=== PATIENT | male | born 1965 ===

== ENCOUNTER 2022-07-10 01:58 | Day surgery (SDC) | payer BC, SELFPAY ==
[2022-06-30 10:16] VITALS: BMI 32.3
--- NOTE | 2022-07-07 13:59 | PM.HPGS ---
History of Present Illness History of Present Illness Consent: Risks, benefits, and alternatives have been discussed and questions answered. Patient agrees to proceed with procedure. Chief complaint: hx of colon polyps Narrative: Carlito Chamberlain is a 57 year old male Referred for colon cancer screening. he has history of polyps. Review of Systems Review of Systems: All systems reviewed & are unremarkable except as noted in HPI and below PMFSH Social History Social History Smoking packs per day: 2 Smoking cigarettes per day: 40.0 Years smoked: 20 Smoking pack-years: 40.00 Smoking status: Former smoker Tobacco type: cigarettes Alcohol intake: current Drinks per week: 35 Alcohol use details: BEERS Substance use: never Substance use type: does not use Living arrangements: with family Spiritual care concerns: No Meds Home Medications and Allergies Home Medications Medication Instructions Recorded Confirmed Type albuterol sulfate 90 mcg/actuation 1 inh inhalation PRN PRN Shortness 06/30/22 06/30/22 History aerosol inhaler Of Breath amlodipine 5 mg tablet 5 mg PO DAILY 06/30/22 06/30/22 History aspirin,buffered (calcium 325 mg PO DAILY 06/30/22 06/30/22 History carbonate-magnesium) 325 mg tablet (Bufferin) atorvastatin 10 mg tablet 10 mg PO DAILY 06/30/22 06/30/22 History cetirizine 10 mg capsule (Zyrtec) 10 mg PO DAILY 06/30/22 06/30/22 History fluticasone propionate 50 2 spray intranasal QPM 06/30/22 06/30/22 History mcg/actuation nasal spray,suspension montelukast 10 mg tablet 10 mg PO DAILY 06/30/22 06/30/22 History olmesartan 20 mg tablet 20 mg PO DAILY 06/30/22 06/30/22 History omega-3 fatty acids-vitamin E 3 cap PO DAILY 06/30/22 06/30/22 History 1,000 mg capsule ruxolitinib 1.5 % topical cream 1 applic topical BID 06/30/22 06/30/22 History (Opzelura) Allergies Allergy/AdvReac Type Severity Reaction Status Date / Time Penicillins Allergy Intermediate Hives Verified 07/10/22 06:17 Exam Const: General: alert Orientation/consciousness: patient oriented x3 Resp: Auscultation: clear to auscultation bilaterally Cardio: Rhythm: regular rhythm GI: GI Palp: Yes Soft to palpation and No Tenderness to palpation present (GI) Neuro: General: patient oriented x3 Assessment and Plan Assessment and plan (1) Colon cancer screening: Code(s): Z12.11 - Encounter for screening for malignant neoplasm of colon Status: Acute Assessment and Plan: Colonoscopy with possible biopsy or polypectomy or cautery or injection of substances.
[2022-07-10 06:19] VITALS: BP 164/84; PULSE 88; RESP 20; TEMP 36.2; O2SAT 96; BMI 31.6
[2022-07-10] MEDS: LACTATED RINGERS 1,000 ML 150 ML IV CONT (06:31)
--- NOTE | 2022-07-10 06:51 | WPDANESEPPF ---
Anes - Initial Pre Proc Eval Procedure: Operation Date: 07/10/22 07:30 Proposed Procedures p Screening Colonoscopy - Aguilar Gutierrez MD Date/Time: 07/10/22 06:51 Surgeon: Aguilar Gutierrez MD Pre Op Diagnosis: hx of colon polyps Patient Data Age: 57 Gender: M Height: 1.8 m Weight: 102.9 kg Last Vital Signs Temp 36.2 C L 07/10/22 06:19 Pulse 88 07/10/22 06:19 Resp 20 07/10/22 06:19 BP 164/84 H 07/10/22 06:19 Pulse Ox 96 07/10/22 06:19 O2 Del Method Room Air 07/10/22 06:19 Allergies Allergy/AdvReac Type Severity Reaction Status Date / Time Penicillins Allergy Intermediate Hives Verified 07/10/22 06:17 Home Medications Medication Instructions Recorded Confirmed Type albuterol sulfate 90 mcg/actuation 1 inh inhalation PRN PRN Shortness 06/30/22 06/30/22 History aerosol inhaler Of Breath amlodipine 5 mg tablet 5 mg PO DAILY 06/30/22 06/30/22 History aspirin,buffered (calcium 325 mg PO DAILY 06/30/22 06/30/22 History carbonate-magnesium) 325 mg tablet (Bufferin) atorvastatin 10 mg tablet 10 mg PO DAILY 06/30/22 06/30/22 History cetirizine 10 mg capsule (Zyrtec) 10 mg PO DAILY 06/30/22 06/30/22 History fluticasone propionate 50 2 spray intranasal QPM 06/30/22 06/30/22 History mcg/actuation nasal spray,suspension montelukast 10 mg tablet 10 mg PO DAILY 06/30/22 06/30/22 History olmesartan 20 mg tablet 20 mg PO DAILY 06/30/22 06/30/22 History omega-3 fatty acids-vitamin E 3 cap PO DAILY 06/30/22 06/30/22 History 1,000 mg capsule ruxolitinib 1.5 % topical cream 1 applic topical BID 06/30/22 06/30/22 History (Opzelura) Patient hx anesthesia problems: none Family hx anesthesia problems: none Results Review: All pre-operative results and documents have been reviewed as part of the pre-operative evaluation. [facility] Past Medical History Medical History (Updated 07/10/22 @ 06:52 by Joe Gonzalez MD) HTN (hypertension) Hyperlipidemia Obesity PVD (peripheral vascular disease) Snoring Surgical History Surgical History (Updated 07/10/22 @ 06:52 by Joe Gonzalez MD) History of lumbar surgery Social History Social History Smoking packs per day: 2 Smoking cigarettes per day: 40.0 Years smoked: 20 Smoking pack-years: 40.00 Smoking status: Former smoker Tobacco type: cigarettes Alcohol intake: current Drinks per week: 35 Alcohol use details: BEERS Substance use: never Substance use type: does not use Living arrangements: with family Spiritual care concerns: No Anes - Eval Final PreProcedure Day of Procedure 07/10/22 06:51 Patient weight: obese Heart: regular rate and rhythm Lungs: clear to auscultation Airway: Mallampati scale class II and special considerations poor opening Last oral intake: >/= 8 hours ASA classification: III Emergent: no Anesthetic plan: proceed Anesthesia type and monitoring: general GIVS and standard monitoring Results Review: All pre-operative results and documents have been reviewed as part of the pre-operative evaluation. Informed Consent: The patient's anesthetic plan and its attendant risks and benefits were discussed with the patient/family/POA. Questions were solicited and answers provided to the satisfaction of the patient/family/POA.
[2022-07-10] MEDS: SIMETHICONE ORAL SUSPENSION 20 MG/0.3 ML 30 ML BOTTLE 0.6 ML IRRIGATION (07:39)
[2022-07-10 07:54] VITALS: BP 89/56; PULSE 76; RESP 17; O2SAT 97
[2022-07-10 08:04] VITALS: BP 112/67; PULSE 77; RESP 18; O2SAT 98
[2022-07-10 08:14] VITALS: BP 123/66; PULSE 81; RESP 21; O2SAT 98
== END 2022-07-10 08:20 | disposition home or self-care (01) ==
PROVIDERS: PCP Family Medicine; Visit Provider Internal Medicine Gastroenterology
PROC: 0DJD8ZZ Inspection of Lower Intestinal Tract, Via Natural or Artificial Opening Endoscopic (ICD-10-PCS; CPT 45378; principal; 2022-07-10 07:30)
DX: Z12.11 Encounter for screening for malignant neoplasm of colon (principal); K57.30 Diverticulosis of large intestine without perforation or abscess without bleeding; D12.5 Benign neoplasm of sigmoid colon; I10 Essential (primary) hypertension; E78.5 Hyperlipidemia, unspecified; I49.3 Ventricular premature depolarization; Z79.51 Long term (current) use of inhaled steroids; E66.9 Obesity, unspecified; Z68.31 Body mass index [BMI] 31.0-31.9, adult; Z87.891 Personal history of nicotine dependence
CPT/HCPCS: 45380; 45385; 88305; J2704; J7120

== ENCOUNTER 2022-07-10 23:10 | Observation (INO) | payer BC, SELFPAY ==
[2022-07-10 23:13] VITALS: BP 159/66; PULSE 106; RESP 20; TEMP 36.3; O2SAT 96
[2022-07-10 23:34] VITALS: BP 144/82; PULSE 95; RESP 21; O2SAT 95
[2022-07-10 23:45] VITALS: PULSE 89; RESP 13; O2SAT 95
[2022-07-10 23:46] VITALS: BP 115/71; PULSE 89; RESP 14; O2SAT 95
[2022-07-11] VITALS (27 sets, daily range): BP systolic 108–151; BP diastolic 55–84; PULSE 81–107; RESP 13–23; TEMP 36.1–36.6; O2SAT 94–100; BMI 37.1
--- NOTE | 2022-07-11 00:13 | ED.GIBLEED ---
HPI - GI Bleed General Chief complaint: GI Bleed Stated complaint: colonoscopy today rectal bleed Time Seen by Provider: 07/10/22 23:34 Source: patient Mode of arrival: ambulatory Limitations: no limitations History of Present Illness HPI Narrative: This is a 57 year old male that presents to the ER for GI bleeding. Reports he had a colonoscopy today with Dr. Gutierrez. Reports he had polyps removed. Reports he sat on the toilet tonight and thought he needed to pass gas. Reports he filled the toilet bowl with blood. He has not had any further episodes thus far. Although he does reports he feels like it could happen again at any moment. He is not on any blood thinners Related Data Home Medications Medication Instructions Recorded Confirmed albuterol sulfate 90 mcg/actuation 1 inh inhalation PRN PRN Shortness 06/30/22 06/30/22 aerosol inhaler Of Breath amlodipine 5 mg tablet 5 mg PO DAILY 06/30/22 06/30/22 aspirin,buffered (calcium 325 mg PO DAILY 06/30/22 06/30/22 carbonate-magnesium) 325 mg tablet (Bufferin) atorvastatin 10 mg tablet 10 mg PO DAILY 06/30/22 06/30/22 cetirizine 10 mg capsule (Zyrtec) 10 mg PO DAILY 06/30/22 06/30/22 fluticasone propionate 50 2 spray intranasal QPM 06/30/22 06/30/22 mcg/actuation nasal spray,suspension montelukast 10 mg tablet 10 mg PO DAILY 06/30/22 06/30/22 olmesartan 20 mg tablet 20 mg PO DAILY 06/30/22 06/30/22 omega-3 fatty acids-vitamin E 3 cap PO DAILY 06/30/22 06/30/22 1,000 mg capsule ruxolitinib 1.5 % topical cream 1 applic topical BID 06/30/22 06/30/22 (Opzelura) Allergies Allergy/AdvReac Type Severity Reaction Status Date / Time Penicillins Allergy Intermediate Hives Verified 07/10/22 23:15 Review of Systems Review of Systems: CONSTITUTIONAL: Denies fever GASTROINTESTINAL: Denies abdominal pain, or diarrhea. All systems reviewed & are unremarkable except as noted in HPI and below PMFSH Past Medical History Medical History (Updated 07/11/22 @ 01:25 by Jessie Adams PA-C) HTN (hypertension) Hyperlipidemia Obesity PVD (peripheral vascular disease) Snoring Surgical History Surgical History (Updated 07/10/22 @ 06:52 by Joe Gonzalez MD) History of lumbar surgery Social History Social History Smoking packs per day: 2 Smoking cigarettes per day: 40.0 Years smoked: 20 Smoking pack-years: 40.00 Smoking status: Former smoker Tobacco type: cigarettes Alcohol intake: current Drinks per week: 35 Alcohol use details: BEERS Substance use: never Substance use type: does not use Spiritual care concerns: No Exam Narrative: GENERAL: Well-appearing, well-nourished, and in no acute distress. HEAD: Normocephalic, atraumatic. EYES: EOMI. CHEST: Clear to auscultation. No respiratory distress. No wheezes rales or rhonchi HEART: Regular rate and rhythm. No murmur heard. Normal peripheral pulses. ABDOMEN: Soft, nontender, nondistended, normal active bowel sounds. EXTREMITIES: Normal range of motion. No edema. SKIN: Warm, dry, no rash. NEURO: No focal deficits. Alert and oriented x3. PSYCH: Normal mood and affect RECTAL: Bright red blood noted in the rectum. No active bleeding Course Consultations Consultation #1: Spoke with Dr. Gutierrez about patient and workup who will admit patient Date: 07/11/22 Vital Signs Vital signs: Vital Signs Temperature 97.4 F L 07/10/22 23:13 Pulse Rate 106 H 07/10/22 23:13 Respiratory Rate 20 07/10/22 23:13 Blood Pressure 159/66 H 07/10/22 23:13 Pulse Oximetry 96 07/10/22 23:13 Oxygen Delivery Room Air 07/10/22 23:13 Temperature 97.4 F L 07/10/22 23:13 Pulse Rate 82 07/11/22 00:45 Respiratory Rate 15 07/11/22 00:45 Blood Pressure 116/67 07/11/22 00:45 Pulse Oximetry 94 07/11/22 00:45 Oxygen Delivery Room Air 07/10/22 23:13 MDM - GI Bleed MDM Narrative Medical decision making narrative: Charmaine
[2022-07-11 00:14] LABS: Basophils Absolute Auto 0.1 K/mm3 (0.0-0.1); Basophils Percent Auto 0.7 % (0.2-1.2); Eosinophils Absolute Auto 0.4 K/mm3 (0-0.3); Eosinophils Percent Auto 4.3 % (0-4.4); Hematocrit 39.1 % (42.0-52.0); Hemoglobin 13.4 g/dL (14.0-18.0); Immature Granulocyte Absolute 0.05 K/mm3 (0.00-0.031); Immature Granulocyte Percent A 0.5 % (0-0.5); Lymphocytes Absolute Auto 2.13 K/mm3 (0.9-3.2); Lymphocytes Percent Auto 22.7 % (18.3-44.2); Mean Corpuscular HGB Conc 34.3 g/dl (32-36); Mean Corpuscular Hemoglobin 31.1 pg (26-34); Mean Corpuscular Volume 90.7 fl (80-100); Mean Platelet Volume 9.3 fl (7.4-10.4); Monocytes Percent Auto 10.9 % (2.6-8.5); Neutrophils Absolute Auto 5.7 K/mm3 (1.3-6.7); Neutrophils Percent Auto 60.9 % (45.5-73.1); Platelet Count Result 297 k/mm3 (150-375); Red Blood Count 4.31 M/mm3 (4.6-6.20); White Blood Count 9.4 K/mm3 (4.5-10.0)
[2022-07-11 00:27] LABS: Alanine Aminotransferase 25 U/L (6-50); Albumin Level 4.4 g/dL (3.5-5.1); Alkaline Phosphatase 43 U/L (38-126); Anion Gap 18 mmol/L (8-16); Aspartate Amino Transferase 24 U/L (17-59); Bilirubin,Total 0.5 mg/dL (0.2-1.3); Blood Urea Nitrogen 16 mg/dL (9-20); Calcium 8.9 mg/dL (8.4-10.2); Carbon Dioxide 20 mmol/L (22-30); Chloride 96 mmol/L (98-107); Estimated CRCL calculation 73 ml/min; Estimated Glomerular Filt Rate > 60; Glucose 179 mg/dL (65-110); Potassium 3.2 mmol/L (3.4-5.0); Sodium 134 mmol/L (137-145)
[2022-07-11 00:28] LABS: Partial Thromboplastin Time 29.6 SECONDS (22.3-36.8)
[2022-07-11] MEDS: SODIUM CHLORIDE 0.9% IV 500 ML 999 ML IV CONT (00:49)
[2022-07-11] MEDS: SODIUM CHLORIDE 0.9% IV 1,000 ML 100 ML IV CONT (00:50)
[2022-07-11] MEDS: KCL 20 MEQ/SW 100 ML 100 ML 50 MEQ IVPB (00:50)
[2022-07-11 01:15] LABS: Magnesium 1.7 mg/dL (1.6-2.3)
[2022-07-11 01:54] LABS: SARS-CoV-2 RNA PCR Negative
[2022-07-11 03:33] LABS: Hematocrit 35.9 % (42.0-52.0); Hemoglobin 12.1 g/dL (14.0-18.0)
--- NOTE | 2022-07-11 04:30 | ADMGEN ---
This patient, Carlito Chamberlain, was admitted to Medical Room 243-. Patient/family oriented to hospital policies and general routines including ID bracelet, bed and alarms, visiting hours, pain management, procedures, bathroom and other care routines, personal items, smoking policy, room service/diet, and visiting hours. Information on how to activate the Rapid Response Team has been discussed. Patient/Family are encouraged to report perceived risks to care and to ask questions if they do not understand what they are told or what they should do.
--- NOTE | 2022-07-11 06:43 | PM.IMHP ---
H&P: [facility] History of Present Illness Date/Time: 07/11/22 06:43 Chief Complaint: This gentleman had a colonoscopy yesterday with polypectomy. Yesterday evening he thought he was having a diarrhea type bowel movement. He looked in the bowl and saw a large amount of blood. He did not become lightheaded. He has had no abdominal pain. He called me and I directed him to the emergency room. He has been admitted for observation. Review of Systems Review of Systems: All systems reviewed & are unremarkable except as noted in HPI and below PMFSH Past Medical History Medical History HTN (hypertension) Hyperlipidemia Obesity PVD (peripheral vascular disease) Snoring Surgical History Surgical History History of lumbar surgery Family History Family History Father Colon cancer Social History Social History Smoking packs per day: 2 Smoking cigarettes per day: 40.0 Years smoked: 20 Smoking pack-years: 40.00 Smoking status: Former smoker Tobacco type: cigarettes Alcohol intake: current Drinks per week: 35 Alcohol use details: BEERS Substance use: never Substance use type: does not use Has the Lack of Transportation Kept You From Medical Appointments or From Getting Medications?: No Within the Past 12 Months, Were You Worried Whether Your Food Would Run Out Before You Got Money to Buy More?: Never True What is Your Housing Situation Today?: I Have Housing Are You Worried That in the Next 2 Months, You May Not Have Your Own Housing to Live In?: No Do You Have Trouble Paying Your Heating Or Electricity Bill?: No Do You Have Trouble Paying For Medicines?: No Are You Currently Unemployed and Looking for Work?: No Highest Level of Education Completed: High School Diploma/GED Do You Have Trouble With Childcare or the Care of a Family Member?: No Spiritual care concerns: No Meds Home Medications and Allergies Home Medications Medication Instructions Recorded Confirmed Type albuterol sulfate 90 mcg/actuation 1 inh inhalation PRN PRN Shortness 06/30/22 07/11/22 History aerosol inhaler Of Breath amlodipine 5 mg tablet 5 mg PO DAILY 06/30/22 07/11/22 History aspirin,buffered (calcium 325 mg PO DAILY 06/30/22 07/11/22 History carbonate-magnesium) 325 mg tablet (Bufferin) atorvastatin 10 mg tablet 10 mg PO DAILY 06/30/22 07/11/22 History cetirizine 10 mg capsule (Zyrtec) 10 mg PO DAILY 06/30/22 07/11/22 History fluticasone propionate 50 2 spray intranasal QPM 06/30/22 07/11/22 History mcg/actuation nasal spray,suspension montelukast 10 mg tablet 10 mg PO DAILY 06/30/22 07/11/22 History olmesartan 20 mg tablet 20 mg PO DAILY 06/30/22 07/11/22 History omega-3 fatty acids-vitamin E 3 cap PO DAILY 06/30/22 07/11/22 History 1,000 mg capsule ruxolitinib 1.5 % topical cream 1 applic topical BID 06/30/22 07/11/22 History (Opzelura) Allergies Allergy/AdvReac Type Severity Reaction Status Date / Time Penicillins Allergy Intermediate Hives Verified 07/10/22 23:15 Vital Signs Vital Signs - 24 hr 07/10/22 23:13 07/10/22 23:34 07/10/22 23:45 Temperature 36.3 C L Pulse Rate 106 H 95 89 Respiratory Rate 20 21 H 13 Blood Pressure 159/66 H 144/82 H Pulse Oximetry 96 95 95 Oxygen Delivery Room Air 07/10/22 23:46 07/11/22 00:02 07/11/22 00:15 Temperature Pulse Rate 89 86 85 Respiratory Rate 14 16 14 Blood Pressure 115/71 112/69 Pulse Oximetry 95 96 96 Oxygen Delivery 07/11/22 00:30 07/11/22 00:45 07/11/22 00:52 Temperature Pulse Rate 83 82 81 Respiratory Rate 15 15 17 Blood Pressure 112/68 116/67 Pulse Oximetry 95 94 97 Oxygen Delivery 07/11/22 01:24 07/11/22 01:30 07/11/22 01:31 Temperature Pulse Rate 92 87 88 Re
[2022-07-11 08:33] LABS: Anion Gap 7 mmol/L (8-16); Blood Urea Nitrogen 15 mg/dL (9-20); Calcium 8.4 mg/dL (8.4-10.2); Carbon Dioxide 24 mmol/L (22-30); Chloride 103 mmol/L (98-107); Estimated CRCL calculation 73 ml/min; Estimated Glomerular Filt Rate > 60; Glucose 161 mg/dL (65-110); Potassium 4.8 mmol/L (3.4-5.0); Sodium 134 mmol/L (137-145)
[2022-07-11 08:57] LABS: Hematocrit 34.1 % (42.0-52.0); Hemoglobin 11.2 g/dL (14.0-18.0)
--- NOTE | 2022-07-11 11:07 | PC.NURSE ---
To GI Lab per shanta, IV saline locked. Report given to MOLINA Gary at the bedside.
--- NOTE | 2022-07-11 11:57 | WPDANESEPPF ---
Anes - Initial Pre Proc Eval Procedure: Operation Date: 07/11/22 12:45 Proposed Procedures p Colonoscopy - Aguilar Gutierrez MD Date/Time: 07/11/22 11:57 Surgeon: Aguilar Gutierrez MD Pre Op Diagnosis: GI Bleed Patient Data Age: 57 Gender: M Height: 1.68 m Weight: 104.5 kg Last Vital Signs Temp 97.0 F L 07/11/22 11:26 Pulse 86 07/11/22 11:26 Resp 22 H 07/11/22 11:26 BP 132/74 07/11/22 11:26 Pulse Ox 100 07/11/22 11:26 O2 Del Method Room Air 07/11/22 11:26 Allergies Allergy/AdvReac Type Severity Reaction Status Date / Time Penicillins Allergy Intermediate Hives Verified 07/11/22 11:24 Home Medications Medication Instructions Recorded Confirmed Type albuterol sulfate 90 mcg/actuation 1 inh inhalation PRN PRN Shortness 06/30/22 07/11/22 History aerosol inhaler Of Breath amlodipine 5 mg tablet 5 mg PO DAILY 06/30/22 07/11/22 History aspirin,buffered (calcium 325 mg PO DAILY 06/30/22 07/11/22 History carbonate-magnesium) 325 mg tablet (Bufferin) atorvastatin 10 mg tablet 10 mg PO DAILY 06/30/22 07/11/22 History cetirizine 10 mg capsule (Zyrtec) 10 mg PO DAILY 06/30/22 07/11/22 History fluticasone propionate 50 2 spray intranasal QPM 06/30/22 07/11/22 History mcg/actuation nasal spray,suspension montelukast 10 mg tablet 10 mg PO DAILY 06/30/22 07/11/22 History olmesartan 20 mg tablet 20 mg PO DAILY 06/30/22 07/11/22 History omega-3 fatty acids-vitamin E 3 cap PO DAILY 06/30/22 07/11/22 History 1,000 mg capsule ruxolitinib 1.5 % topical cream 1 applic topical BID 06/30/22 07/11/22 History (Opzelura) Laboratory Tests 07/10/22 07/10/22 07/10/22 23:39 23:39 23:41 WBC 9.4 K/mm3 K/mm3 (4.5-10.0) RBC 4.31 M/mm3 L M/mm3 (4.6-6.20) Hgb 13.4 g/dL L g/dL (14.0-18.0) Hct 39.1 % L % (42.0-52.0) MCV 90.7 fl fl (80-100) MCH 31.1 pg pg (26-34) MCHC 34.3 g/dl g/dl (32-36) RDW 13.0 % % (11.5-14.5) Plt Count 297 k/mm3 k/mm3 (150-375) MPV 9.3 fl fl (7.4-10.4) Immature Gran % (Auto) 0.5 % % (0-0.5) Neut % (Auto) 60.9 % % (45.5-73.1) Lymph % (Auto) 22.7 % % (18.3-44.2) [place] % (Auto) 10.9 % H % (2.6-8.5) Eos % (Auto) 4.3 % % (0-4.4) Baso % (Auto) 0.7 % % (0.2-1.2) Lymph # (Auto) 2.13 K/mm3 K/mm3 (0.9-3.2) [place] # (Auto) 1.0 K/mm3 H K/mm3 (0.1-0.6) Eos # (Auto) 0.4 K/mm3 H K/mm3 (0-0.3) Baso # (Auto) 0.1 K/mm3 K/mm3 (0.0-0.1) Abs Immat Gran (auto) 0.05 K/mm3 H K/mm3 (0.00-0.031) Absolute Neuts (auto) 5.7 K/mm3 K/mm3 (1.3-6.7) Absolute Nucleated RBC 0.0 K/mm3 K/mm3 (0.0-0.012) Nucleated RBC % 0.0 % % (0.0-0.2) PT INR APTT Sodium Potassium Chloride Carbon Dioxide Anion Gap BUN Creatinine Estim Creat Clear Calc Estimated GFR Glucose Hemoglobin A1c 6.0 % H % (<5.7) Calcium Magnesium 1.7 mg/dL mg/dL (1.6-2.3) Total Bilirubin AST ALT Alkaline Phosphatase Total Protein Albumin SARS-CoV-2 RNA (RT-PCR) Blood Type Antibody Screen 07/10/22 07/10/22 07/10/22 23:41 23:41 23:41 WBC RBC Hgb Hct MCV MCH MCHC RDW Plt Count MPV Immature Gran % (Auto) Neut % (Auto) Lymph % (Auto) [place] % (Auto) Eos % (Auto) Baso % (Auto) Lymph # (Auto) [place] # (Auto) Eos # (Auto) Baso #
[2022-07-11] MEDS: LACTATED RINGERS 1,000 ML 150 ML IV CONT (12:00)
[2022-07-11] MEDS: EPINEPHrine INJ 1 MG/10 ML SYRINGE XX (12:39)
--- NOTE | 2022-07-11 13:27 | PC.NURSE ---
Returned from GI Lab. Report received from MOLINA Ascencio.
[2022-07-11] MEDS: BENZOCAINE 20% HEMORRHOIDAL OINTMENT 28 GM 1 APPLIC TOPICAL (14:18)
[2022-07-11 14:41] LABS: Hematocrit 34.3 % (42.0-52.0); Hemoglobin 11.4 g/dL (14.0-18.0)
--- NOTE | 2022-07-11 16:22 | PM.DS ---
DS: Admitting Diagnosis Discharge Date July 11, 2022 Admitting Diagnosis Rectal bleeding DS: Discharge Diagnosis Discharge Diagnosis Plan Post polypectomy bleed DS: Summary Hospital Course Reason for hospitalization: The patient presents emergency room yesterday evening with rectal bleeding. He had undergone a colonoscopy earlier in the day with removal of a polyp. He began to see blood in his stools and called as he was advised to do if he had seen any. He was admitted for observation. Hospital Course: He was admitted for observation. He did pass some stools overnight although they were increasingly darker. He underwent sigmoidoscopy on July 11. The site of polypectomy where there was an ulceration and a few specks of blood was injected with epinephrine an additional clip applied. He was able to tolerate regular diet and is being discharged. Status at Discharge Cognitive/behavioral status at discharge: Is alert and oriented Functional status at discharge: independent ambulation Overall status at discharge: patient is back to baseline Time Spent with Patient Time attestation: Total time spent providing and/or coordinating discharge services: Time spent: Less than 30 minutes Exam Const: General: alert Orientation/consciousness: patient oriented x3 Resp: Auscultation: clear to auscultation bilaterally Cardio: Rhythm: regular rhythm GI: GI Palp: Yes Soft to palpation and No Tenderness to palpation present (GI) Neuro: General: patient oriented x3 DS: Data Data Completed and Pending Labs on day of discharge: Labs from last 24 hours 07/11/22 07/11/22 07/11/22 14:30 08:13 08:13 WBC RBC Hgb 11.4 L 11.2 L Hct 34.3 L 34.1 L MCV MCH MCHC RDW Plt Count MPV Immature Gran % (Auto) Neut % (Auto) Lymph % (Auto) [place] % (Auto) Eos % (Auto) Baso % (Auto) Lymph # (Auto) [place] # (Auto) Eos # (Auto) Baso # (Auto) Abs Immat Gran (auto) Absolute Neuts (auto) Absolute Nucleated RBC Nucleated RBC % PT INR APTT Sodium 134 L Potassium 4.8 Chloride 103 Carbon Dioxide 24 Anion Gap 7 L BUN 15 Creatinine 1.10 Estim Creat Clear Calc 73 Estimated GFR > 60 Glucose 161 H Hemoglobin A1c Calcium 8.4 Magnesium Total Bilirubin AST ALT Alkaline Phosphatase Total Protein Albumin SARS-CoV-2 RNA (RT-PCR) Blood Type Antibody Screen 11/10/0107/11/22 07/10/22 03:18 01:05 23:41 WBC RBC Hgb 12.1 L Hct 35.9 L MCV MCH MCHC RDW Plt Count MPV Immature Gran % (Auto) Neut % (Auto) Lymph % (Auto) [place] % (Auto) Eos % (Auto) Baso % (Auto) Lymph # (Auto) [place] # (Auto) Eos # (Auto) Baso # (Auto) Abs Immat Gran (auto) Absolute Neuts (auto) Absolute Nucleated RBC Nucleated RBC % PT INR APTT Sodium Potassium Chloride Carbon Dioxide Anion Gap BUN Creatinine Estim Creat Clear Calc Estimated GFR Glucose Hemoglobin A1c Calcium Magnesium Total Bilirubin AST ALT Alkaline Phosphatase Total Protein Albumin SARS-CoV-2 RNA (RT-PCR) Negative Blood Type AB Positive Antibody Screen Negative 07/10/22 07/10/22 07/10/22 23:41 23:41 23:41 WBC 9.4 RBC 4.31 L Hgb 13.4 L Hct 39.1 L MCV 90.7 MCH 31.1 MCHC 34.3 RDW 13.0 Plt Count 297 MPV 9.3 Immature Gran % (Auto) 0.5 Neut % (Auto) 60.9 Lymph % (Auto) 22.7 [place] % (Auto) 10.9 H Eos % (Auto) 4.3 Baso % (Auto) 0.7 Lymph # (Auto) 2.13 [place] # (Auto) 1.0 H Eos # (Auto) 0.4 H Baso # (Auto) 0.1 Abs Immat Gran (auto) 0.05 H Absolute Neuts (auto) 5.7 Absolute Nucleated RBC 0.0 Nucleated RBC % 0.0 PT 13.0 INR 1.0 APTT 29.6 Sodium 134 L Potassium 3.2 L Chloride 96 L
== END 2022-07-11 16:43 | disposition home or self-care (01) ==
LOC: ANHED 07-11 01:25 → ANH2MED 07-11 03:54
PROVIDERS: Physician Assistant; Admitting Provider Internal Medicine Gastroenterology; Emergency Provider Emergency Medicine; PCP Family Medicine; Visit Provider Internal Medicine Gastroenterology
PROC: 0DJD8ZZ Inspection of Lower Intestinal Tract, Via Natural or Artificial Opening Endoscopic (ICD-10-PCS; CPT 45378; principal; 2022-07-11 12:45)
DX: K63.3 Ulcer of intestine (principal); K57.30 Diverticulosis of large intestine without perforation or abscess without bleeding; K64.8 Other hemorrhoids; K62.89 Other specified diseases of anus and rectum; K91.840 Postprocedural hemorrhage of a digestive system organ or structure following a digestive system procedure; Y84.8 Other medical procedures as the cause of abnormal reaction of the patient, or of later complication, without mention of misadventure at the time of the procedure; Z20.822 Contact with and (suspected) exposure to COVID-19; E87.6 Hypokalemia; E87.5 Hyperkalemia; I10 Essential (primary) hypertension; E66.9 Obesity, unspecified; Z86.010 Personal history of colon polyps; Z68.37 Body mass index [BMI] 37.0-37.9, adult; Z87.891 Personal history of nicotine dependence; F10.90 Alcohol use, unspecified, uncomplicated; Z79.51 Long term (current) use of inhaled steroids; Z79.82 Long term (current) use of aspirin; Z79.899 Other long term (current) drug therapy
CPT/HCPCS: 45334; 36415; 80048; 80053; 83036; 83735; 85014; 85018; 85025; 85610; 85730; 86850; 86900; 86901; 96361; 96365; 96366; 99285; A9270; G0378; J0171; J2704; J3480; J7030; J7040; J7120; U0003; U0005